=== PATIENT | male | born 1970 | race Caucasian/White ===

== ENCOUNTER 2019-07-19 19:51 | Emergency (ER) | payer OTHER ==
[~2019-07-19] VITALS: Ht 182.9 cm; Wt 83.0 kg
[2019-07-19 19:52] VITALS: BP 141/101
--- NOTE | 2019-07-19 20:06 | NUR ---
PT TAKEN TO BED 4
--- NOTE | 2019-07-19 20:15 | NUR ---
49 Y/O MALE PRESENTS TO THE ER FOR MEDICATION REFILL FOR OXYCODONE-ACETEMINOPHEN 10-325MG FOR L4-L5 BULGING DISC X 5YRS. 8/10 PAIN. PT STATES HE CANNOT GET RX REFILL FROM PAIN MANAGEMENT DUE TO OFFICE BEING CLOSED DUE TO COVID. PT ALSO WENT TO ANOTHER MEDICAL FACILITY FOR REFULL AND WAS TOLD TO COME INTO ER FOR RX REFILL. PT DENIES SOB, COUGH, NAUSEA, VOMITING, DIARRHEA. R/R EQUAL, AND UNLABORED. SITTING IN CHAIR NEXT TO BED. WILL CONTINUE TO MONITOR. PMHX: HTN NKDA
[2019-07-19] MEDS ORDERED: KETOROLAC 30 MG/ML VIAL IM ONE (20:20)
[2019-07-19 20:44] VITALS: BP 141/101
--- NOTE | 2019-07-19 20:44 | NUR ---
Patient discharged with v/s stable. Written and verbal after care instructions given and explained. Patient alert, oriented and verbalized understanding of instructions. Ambulatory with steady gait. All questions addressed prior to discharge. ID band removed. Patient advised to follow up with PMD. Rx of PERCOCET given. Patient educated on indication of medication including possible reaction and side effects. Opportunity to ask questions provided and answered.
== END 2019-07-19 20:44 | disposition home or self-care (01) ==
LOC: MED 19:51
DX: G89.29 Other chronic pain (principal); F17.200 Nicotine dependence, unspecified, uncomplicated; Z76.0 Encounter for issue of repeat prescription
CPT/HCPCS: 96372; 99283; J1885

== ENCOUNTER 2019-08-02 17:18 | Emergency (ER) | payer OTHER ==
[~2019-08-02] VITALS: Ht 182.9 cm; Wt 84.4 kg
[2019-08-02 17:22] VITALS: BP 141/94
[2019-08-02] MEDS ORDERED: KETOROLAC 60 MG/2 ML VIAL IM ONE ×2 (17:55)
== END 2019-08-02 18:00 | disposition home or self-care (01) ==
LOC: MED 17:18
DX: G89.29 Other chronic pain (principal); M51.36 Other intervertebral disc degeneration, lumbar region; I10 Essential (primary) hypertension
CPT/HCPCS: 96372; 99283; J1885

== ENCOUNTER 2019-09-18 21:03 | Emergency (ER) | payer OTHER ==
[~2019-09-18] VITALS: Ht 182.9 cm; Wt 81.6 kg
[2019-09-18 21:07] VITALS: BP_SYST 147; BP_SYST 74; BP_DIAS 32; BP_DIAS 91
--- NOTE | 2019-09-18 21:12 | NUR ---
PT AMBULATED TO BED 12 WITH STEADY GAIT
--- NOTE | 2019-09-18 21:20 | NUR ---
FRANKY FRANCE AT BEDSIDE
[2019-09-18] MEDS ORDERED: KETOROLAC 60 MG/2 ML VIAL IM ONE (21:25)
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
[2019-09-18 21:59] VITALS: BP 147/91
--- NOTE | 2019-09-18 21:59 | NUR ---
Patient discharged with v/s stable. Written and verbal after care instructions given and explained. Patient alert, oriented and verbalized understanding of instructions. Ambulatory with steady gait. All questions addressed prior to discharge. ID band removed. Patient advised to follow up with PMD. Rx of NORCO, NAPROXEN given. Patient educated on indication of medication including possible reaction and side effects. Opportunity to ask questions provided and answered.
== END 2019-09-18 21:59 | disposition home or self-care (01) ==
LOC: MED 21:03
DX: M54.5 Low back pain (principal); G89.29 Other chronic pain; I10 Essential (primary) hypertension
CPT/HCPCS: 96372; 99283; J1885

== ENCOUNTER 2019-10-15 17:42 | Emergency (ER) | payer OTHER ==
[~2019-10-15] VITALS: Ht 182.9 cm; Wt 81.6 kg
[2019-10-15 18:08] VITALS: BP 115/83
--- NOTE | 2019-10-15 18:17 | NUR ---
upcoming pain specialist appt this thurs c/o ran out of pain meds goes between percocet and norco lower back pain constantly-- denies recent injury or incontinence
--- NOTE | 2019-10-15 19:50 | NUR ---
PT AMBULATED TO CHAIR A WITH STEADY GAIT
--- NOTE | 2019-10-15 19:51 | NUR ---
EXAMINING PT IN CHAIR
[2019-10-15] MEDS ORDERED: oxyCODONE/APAP 5/325 MG 1 TAB TAB PO ONE (19:55)
[2019-10-15 20:09] VITALS: BP 115/83
== END 2019-10-15 20:08 | disposition home or self-care (01) ==
LOC: MED 17:42
DX: M54.5 Low back pain (principal); I10 Essential (primary) hypertension
CPT/HCPCS: 99283

== ENCOUNTER 2019-10-18 14:35 | Emergency (ER) | payer OTHER ==
[~2019-10-18] VITALS: Ht 182.9 cm; Wt 81.6 kg
[2019-10-18 14:44] VITALS: BP 137/83
--- NOTE | 2019-10-18 14:53 | NUR ---
BIB SELF FOR PAIN MEDICINE. C/O CHRONIC BACK PAIN MED HX: CHRONIC BACK PAIN
[2019-10-18] MEDS ORDERED: HYDROcodone/APAP 7.5/325 MG 1 TAB PO ONE (15:10)
--- NOTE | 2019-10-18 15:20 | NUR ---
FRANKY MONTEZ EVALUATING PT
[2019-10-18 15:38] VITALS: BP 137/83
--- NOTE | 2019-10-18 15:38 | NUR ---
Patient discharged with v/s stable. Written and verbal after care instructions given and explained. Patient alert, oriented and verbalized understanding of instructions. Ambulatory with steady gait. All questions addressed prior to discharge. ID band removed. Patient advised to follow up with PMD. Rx of VOLTAREN GEL given. Patient educated on indication of medication including possible reaction and side effects. Opportunity to ask questions provided and answered.
== END 2019-10-18 15:38 | disposition home or self-care (01) ==
LOC: MED 14:35
DX: G89.29 Other chronic pain (principal); M54.5 Low back pain; I10 Essential (primary) hypertension
CPT/HCPCS: 99283

== ENCOUNTER 2019-11-07 18:45 | Emergency (ER) | payer OTHER ==
[~2019-11-07] VITALS: Ht 182.9 cm; Wt 85.3 kg
[2019-11-07 18:55] VITALS: BP 155/87
--- NOTE | 2019-11-07 18:58 | NUR ---
PT AMBULATED TO BED 4, STEADY GAIT.
--- NOTE | 2019-11-07 18:59 | NUR ---
PT AMBULATED TO BED 5.
--- NOTE | 2019-11-07 19:12 | NUR ---
FRANKY Vargas is evaluating the patient at bedside.
[2019-11-07 19:28] VITALS: BP 154/87
== END 2019-11-07 19:29 | disposition home or self-care (01) ==
LOC: MED 18:45
DX: L03.031 Cellulitis of right toe (principal); I10 Essential (primary) hypertension
CPT/HCPCS: 99283

== ENCOUNTER 2019-12-03 16:45 | Emergency (ER) | payer OTHER ==
[~2019-12-03] VITALS: Ht 182.9 cm; Wt 83.9 kg
[2019-12-03 16:50] VITALS: BP 140/104
--- NOTE | 2019-12-03 17:00 | NUR ---
ERMD AT BEDSIDE ASSESSING PATIENT, NO NURSING INVERTIONS ORDERED AT THIS TIME.
[2019-12-03 17:35] VITALS: BP 140/104
--- NOTE | 2019-12-03 17:37 | NUR ---
Patient discharged with v/s stable. Written and verbal after care instructions given and explained. Patient alert, oriented and verbalized understanding of instructions. Ambulatory with steady gait. All questions addressed prior to discharge. ID band removed. Patient advised to follow up with PMD. Rx of MIRTAZAPINE given. Patient educated on indication of medication including possible reaction and side effects. Opportunity to ask questions provided and answered.
== END 2019-12-03 17:37 | disposition home or self-care (01) ==
LOC: MED 16:45
DX: F41.9 Anxiety disorder, unspecified (principal); I10 Essential (primary) hypertension; Z76.0 Encounter for issue of repeat prescription
CPT/HCPCS: 99283

== ENCOUNTER 2020-05-11 15:44 | Emergency (ER) | payer OTHER ==
[~2020-05-11] VITALS: Ht 182.9 cm; Wt 76.2 kg
[2020-05-11 15:47] VITALS: BP 142/94
--- NOTE | 2020-05-11 16:04 | NUR ---
50 YEAR OLD MALE PRESENTED TO ER TO OBTAIN REFILL FOR MEDICATION MIRTAZAPINE PO 45MG DAILY; COPY OF MEDICAL RECORDS WITH PRESCRIPTION WITH PATIENT. PATIENT ALSO COMPLAINS OF CONTINUOUS BACK PAIN 8/10, DULL, "FOR YEARS" DUE TO INJUY. AO4, BREATHING EVEN AND UNLABORED, SKIN WARM AND DRY. BED IN LOWEST POSITION, LOCKED, X1 SIDERAIL UP. PMH - HTN NKA
[2020-05-11] MEDS ORDERED: KETOROLAC 30 MG/ML VIAL IM ONE (16:10)
[2020-05-11] MEDS ORDERED: oxyCODONE/APAP 5/325 MG 1 TAB TAB PO ONE (16:10)
[2020-05-11 16:45] VITALS: BP 142/94
--- NOTE | 2020-05-11 16:48 | NUR ---
Patient discharged with v/s stable. Written and verbal after care instructions about chronic pain management, and anxiety attacks given and explained. Patient alert, oriented and verbalized understanding of instructions. Ambulatory with steady gait. All questions addressed prior to discharge. ID band removed. Patient advised to follow up with PMD. Rx of mirtazapine given. Patient educated on indication of medication including possible reaction and side effects. Opportunity to ask questions provided and answered.
== END 2020-05-11 16:48 | disposition home or self-care (01) ==
LOC: MED 15:44
DX: F41.9 Anxiety disorder, unspecified (principal); G89.29 Other chronic pain; M54.5 Low back pain; Z76.0 Encounter for issue of repeat prescription
CPT/HCPCS: 96372; 99283; J1885

== ENCOUNTER 2020-05-28 12:13 | Emergency (ER) | payer OTHER ==
[~2020-05-28] VITALS: Ht 182.9 cm; Wt 83.5 kg
[2020-05-28 12:15] VITALS: BP 189/72
[2020-05-28] MEDS ORDERED: MIRT45TA PO (12:45)
[2020-05-28] MEDS ORDERED: CLOT1CRE TP (12:47)
[2020-05-28 13:16] VITALS: BP 189/72
== END 2020-05-28 13:17 | disposition home or self-care (01) ==
LOC: MED 12:13
DX: F41.9 Anxiety disorder, unspecified (principal); R21 Rash and other nonspecific skin eruption; I10 Essential (primary) hypertension
CPT/HCPCS: 99283

== ENCOUNTER 2021-10-10 17:45 | Emergency (ER) | payer OTHER ==
[~2021-10-10] VITALS: Ht 182.9 cm; Wt 86.2 kg
[~2021-10-10 17:45] MED LIST: CLOT1CRE TP; MIRT45TA PO
[2021-10-10 18:13] VITALS: BP 137/99
--- NOTE | 2021-10-10 18:17 | NUR ---
PT TO LOBBY.
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
--- NOTE | 2021-10-10 18:46 | NUR ---
PT TAKEN TO XR VIA W/C.
--- NOTE | 2021-10-10 18:54 | NUR ---
PT TAKEN TO LOBBY VIA W/C FROM XR.
--- NOTE | 2021-10-10 19:07 | NUR ---
FRANKY CABEZAS WITH PT FOR FURTHER EVALUATION IN A.
[2021-10-10] MEDS ORDERED: IBUP-2213 PO (19:58)
[2021-10-10] MEDS ORDERED: KETOROLAC 30 MG/ML VIAL ONE (20:18)
[2021-10-10] MEDS: KETOROLAC 30 MG/ML VIAL IM ONE (20:22)
== END 2021-10-10 20:30 | disposition home or self-care (01) ==
LOC: MED 17:45
DX: S39.012A Strain of muscle, fascia and tendon of lower back, initial encounter (principal); I10 Essential (primary) hypertension; Z98.890 Other specified postprocedural states; V49.88XA Car occupant (driver) (passenger) injured in other specified transport accidents, initial encounter; Y93.89 Activity, other specified; Y92.89 Other specified places as the place of occurrence of the external cause; Y99.8 Other external cause status
CPT/HCPCS: 72040; 96372; 99283; J1885

== ENCOUNTER 2024-01-08 21:23 | Emergency (ER) | payer BC, OTHER ==
[~2024-01-08] VITALS: Ht 182.9 cm; Wt 79.4 kg
[~2024-01-08 21:23] MED LIST changes: +IBUP-2213 PO
[2024-01-08 21:31] VITALS: BP 112/85; PULSE 105; RESP 16; TEMP 98.4; O2SAT 98
[2024-01-08] MEDS: MORPHINE SULFATE 4 MG/ML SYR IM ONE (23:36)
[2024-01-09 00:41] VITALS: BP 116/79; PULSE 69; RESP 19; TEMP 97.6; O2SAT 96
== END 2024-01-09 00:42 | disposition home or self-care (01) ==
LOC: MED 21:23
DX: M54.50 Low back pain, unspecified (principal); I10 Essential (primary) hypertension; Z98.890 Other specified postprocedural states; Z79.899 Other long term (current) drug therapy
CPT/HCPCS: 96372; 99283; J2270